=== PATIENT | female | born 2000 | race Native Hawaiian/Other Pacific Islander ===

== ENCOUNTER 2024-12-22 15:52 | Outpatient (CLI) | payer MEDICAID, SELFPAY ==
[2024-12-22 16:03] VITALS: PULSE 99; O2SAT 97
[2024-12-22 16:05] VITALS: BP 111/56; PULSE 97; RESP 18; TEMP 36.9
--- NOTE | 2025-01-02 15:53 | PC.OBNST ---
NST Note NST Note Start: 12/22/24 16:02 Freq: ONCE Status: Discharge Protocol: Document 12/22/24 17:11 VMM (Rec: 12/22/24 17:13 VMM [id number]) NST Note 2 Para (# of births) 0 EDC 02/02/25 Gestational Age In 34 Weeks & 0 Days Weeks & Days Other Complaints The patient was directed to come to the center by [facility] triage due to expressing that she felt decreased movement. Dr. Deng was updated that the patient had a reactive tracing while at the center, and that she was vitally stable. Dr. Deng approved the patient could discharge to home and to give the patient precautions to follow to know when to return to the center. Reactive Yes Appropriate for Yes Gestational Age ESTELA Nieto, RN Date 12/22/24 Reactive Yes Appropriate for Yes Gestational Age ESTELA Marcus RNC Date 12/22/24 OB NST charge Yes Complete NST Note Yes via Write Note The provider's electronic signature indicates the NST is reactive/appropriate for gestational age. *Note to provider: If an addendum is required, open the patient's chart and click on the note under the Nurse/Allied Health tab.
== END 2024-12-22 16:40 | disposition home or self-care (01) ==
LOC: OB OUT 15:53 → OB 15:53
PROVIDERS: PCP Family Medicine; Visit Provider Family Medicine
DX: O36.8130 Decreased fetal movements, third trimester, not applicable or unspecified (principal); Z3A.34 34 weeks gestation of pregnancy
CPT/HCPCS: 59025; G0463

== ENCOUNTER 2025-01-24 15:45 | Outpatient (CLI) | payer BC, SELFPAY ==
[2025-01-24 15:51] VITALS: PULSE 213; O2SAT 97
[2025-01-24 15:58] VITALS: BP 120/61; PULSE 100; TEMP 36.6
[2025-01-24 15:59] VITALS: RESP 16; TEMP 36.6
--- NOTE | 2025-01-24 19:05 | PC.OBNST ---
NST Note NST Note Start: 01/24/25 15:50 Freq: ONCE Status: Discharge Protocol: Document 01/24/25 19:04 ABP (Rec: 01/24/25 19:04 ABP [id number]) NST Note 2 Para (# of births) 0 EDC 02/02/25 Gestational Age In 38 Weeks & 5 Days Weeks & Days Patient Presented Decreased movement with Complaint(s) of Reactive Yes ESTELA Mart RN Date 01/24/25 Reactive Yes ESTELA Brennan RN Date 01/24/25 OB NST charge Yes Complete NST Note Yes via Write Note The provider's electronic signature indicates the NST is reactive/appropriate for gestational age. *Note to provider: If an addendum is required, open the patient's chart and click on the note under the Nurse/Allied Health tab.
== END 2025-01-24 16:30 | disposition home or self-care (01) ==
LOC: OB OUT 15:46 → OB 15:47
PROVIDERS: PCP Family Medicine; Visit Provider Student in an Organized Health Care Education/Training Program
DX: O36.8130 Decreased fetal movements, third trimester, not applicable or unspecified (principal); Z3A.38 38 weeks gestation of pregnancy
CPT/HCPCS: 59025; G0463